=== PATIENT | male | born 1955 | race Caucasian/White ===

== ENCOUNTER → 2016-12-31 | Outpatient (CLI) | payer BC ==
--- NOTE | 2017-01-02 09:13 | SLEEPHOME ---
DATE OF STUDY: 12/31/2016 ORDERING PROVIDER: Danelle Tilley NP Diagnostic home sleep testing was performed due to concern for the obstructive sleep apnea syndrome in this patient with excessive somnolence and nonrestorative sleep. For testing, a NOX-T3 respiratory monitoring device was used. Continuous record was made of pulse, oxygen saturation, airflow, chest and abdominal strain, and body position. 9 hours and 59 minutes of data were reviewed. Of these, 8 hours and 27 minutes were marked as time in bed. During the interval marked time in bed, there were 57 respiratory events identified of 10 seconds in duration or greater for a respiratory event index of 6.7. The events were primarily obstructive. Occasional mixed and central events were seen. Baseline pulse rate 61 beats per minute. Pulse rate ranged 49-83. Baseline saturation 92%. Lowest oxygen saturation 86%. Testing was performed in both the supine and nonsupine positions. IMPRESSION: Abnormal home sleep testing with repetitive respiratory events and oxygen desaturation to 86% with a respiratory event index of 6.7 is consistent with the obstructive sleep apnea syndrome. RECOMMENDATION: The patient should be encouraged to undergo formal sleep evaluation and in-laboratory pressure titration.
== END ==
LOC: M SLEEP HO 09:51
PROVIDERS: ATTEND Nurse Practitioner Adult Health
DX: G47.9 Sleep disorder, unspecified (principal)

== ENCOUNTER 2018-05-25 00:54 | Emergency (ER) | payer BC ==
[2018-05-25] MEDS: dexameTHASONE 20 MG/5 ML VIAL (J1100) IV (01:30)
[2018-05-25] MEDS: carBAMazepine 200 MG TAB PO (01:30)
[2018-05-25] MEDS: HYDROMORPHONE HCL 0.5 MG/ 0.5 ML SYRINGE (J1170 PER 1) IV ×3 (01:30→02:30)
[2018-05-25] MEDS: NORCO 5/325MG TABLET (BULK FOR ED) PO (02:30)
== END 2018-05-25 03:04 | disposition home or self-care (01) ==
LOC: M ED 00:54
DX: M79.2 Neuralgia and neuritis, unspecified (principal); I10 Essential (primary) hypertension; E78.5 Hyperlipidemia, unspecified; Z79.899 Other long term (current) drug therapy
CPT/HCPCS: J1100

== ENCOUNTER → 2019-05-06 | Outpatient (CLI) | payer BC ==
[~2019-05-06] MED LIST: ATOR1TAB19; CHLO125TA; ISRA2.5C; LOSA100T50; METH4PACK
--- NOTE | 2019-05-06 15:48 | REP ---
Duplex extremity venous ultrasound: Right lower extremity. History: Right leg swelling. Findings: The deep veins are anechoic and fully compressible from the groin to the popliteal fossa in the right lower extremity. Color flow imaging is homogeneous. Spectral Doppler interrogation demonstrates intact respiratory variation in flow and normal manual augmentation of flow. There is no evidence of deep vein thrombosis. Impression: Negative right lower extremity duplex venous ultrasound. No evidence of deep vein thrombosis. Electronically Signed by Khang Red MD 05/06/2019 03:41 P
== END ==
LOC: M RAD 14:57
PROVIDERS: ATTEND Family Medicine
DX: M79.89 Other specified soft tissue disorders (principal)

== ENCOUNTER → 2019-09-29 | Outpatient (CLI) | payer MEDICARE, BC ==
--- NOTE | 2019-09-29 13:42 | REPPI ---
Chest x-ray: Two views. History: Chest pain. No comparison study. Findings: The lungs are symmetrically aerated and clear. Pleural angles are sharp. Heart size is normal. There are degenerative changes in the thoracic spine. Impression: No active disease. Electronically Signed by Khang Red MD 09/29/2019 07:04 P
== END ==
LOC: M PLAIMG 12:28
PROVIDERS: ATTEND Internal Medicine
DX: M51.34 Other intervertebral disc degeneration, thoracic region (principal); R07.9 Chest pain, unspecified
CPT/HCPCS: 71046; 93005; G0463

== ENCOUNTER → 2021-07-03 | Outpatient (CLI) | payer MEDICARE, BC ==
--- NOTE | 2021-07-03 12:01 | REP ---
INDICATION: CONTACT WITH AND (SUSPECTED) EXPOSURE TO ASBESTOS. COMPARISON: Two-view chest, 09/29/2019 TECHNIQUE: Upright PA and lateral chest images were obtained. FINDINGS: The lungs are clear. The heart borders mediastinum and pulmonary vascular pattern normal. The upper abdominal bowel gas pattern is normal. 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 IMPRESSION: No evidence of acute cardiopulmonary pathology. <Electronically signed by Rick Marti > 07/03/21 [id number]
== END ==
LOC: M PLAIMG 08:23 → M PLALAB 08:23
PROVIDERS: ATTEND Internal Medicine
DX: M51.34 Other intervertebral disc degeneration, thoracic region (principal); Z77.090 Contact with and (suspected) exposure to asbestos

== ENCOUNTER → 2022-05-30 | Outpatient (REF) | payer MEDICARE, BC ==
[~2022-05-30] MED LIST changes: +LOSA100T45; -LOSA100T50
[2022-05-30 14:20] LABS: TOTAL PROTEIN 7.1 GM/DL (6.4-8.2)
[2022-05-30 15:03] LABS: VITAMIN B12 LEVEL 597 PG/ML (247-911)
[2022-05-31 14:15] LABS: ALBUMIN 4.21 GM/DL (3.29-5.55); ALBUMIN % 59.3 % (55.8-66.1); ALPHA-1-GLOBULIN % 4.3 % (2.9-4.9); ALPHA-1-GLOBULINS 0.31 GM/DL (0.17-0.41); ALPHA-2-GLOBULINS 0.85 GM/DL (0.42-0.99); BETA-1-GLOBULINS 0.39 GM/DL (0.28-0.60); BETA-1-GLOBULINS % 5.5 % (4.7-7.2); BETA-2-GLOBULINS 0.33 GM/DL (0.19-0.55); BETA-2-GLOBULINS % 4.7 % (3.2-6.5); GAMMA GLOBULIN % 14.2 % (11.1-18.8); GAMMA GLOBULINS 1.01 GM/DL (0.65-1.58)
[2022-05-31 18:08] LABS: FREE KAPPA LIGHT CHAINS SERUM 22.8 mg/L (3.3-19.4); FREE LAMBDA LIGHT CHAINS SERUM 17.9 mg/L (5.7-26.3); KAPPA/LAMBDA RATIO SERUM 1.27 (0.26-1.65)
== END ==
LOC: M LAB REF 12:17
PROVIDERS: ATTEND Internal Medicine
DX: G60.9 Hereditary and idiopathic neuropathy, unspecified (principal)